=== PATIENT | female | born 1950 | race Caucasian/White ===

== ENCOUNTER 2018-04-19 12:39 | Emergency (ER) | payer MEDICARE ==
[2018-04-19 13:02] VITALS: BP 205/88
--- NOTE | 2018-04-19 13:12 | UC ---
Respiratory Complaint HPI - HPI Summary HPI Summary: 68-year-old female with history of asthma presents with 4 day history of nasal congestion, postnasal drip, mild shortness of breath, wheezing, and a nonproductive cough. States she is having to use her rescue inhaler almost every 4 hours. Denies fever, chills, ear pain, sore throat, chest pain, palpitations, abdominal pain, nausea, or vomiting. - History of Current Complaint Chief Complaint: UCRespiratory Stated Complaint: COUGH Time Seen by Provider: 04/19/18 13:06 Hx Obtained From: Patient Pain Intensity: 2 - Allergies/Home Medications Allergies/Adverse Reactions: Allergies Allergy/AdvReac Type Severity Reaction Status Date / Time clindamycin Allergy Hives Verified 04/19/18 12:57 ibuprofen Allergy Bleeding Verified 04/19/18 13:06 Home Medications: Home Medications Loratadine [Claritin 10 MG CAP] 10 mg PO DAILY 04/19/18 [History Confirmed 04/19] Verapamil SR CAP* [Calan Sr CAP*] 180 mg PO BID 04/19/18 [History Confirmed ] PMH/Surg Hx/FS Hx/Imm Hx Cardiovascular History: Hypertension Respiratory History: Asthma, Bronchitis, Pneumonia - Surgical History Surgical History: Yes Surgery Procedure, Year, and Place: hysterectomy - Family History Known Family History: Positive: Non-Contributory - Social History Occupation: Retired Lives: With Family Alcohol Use: Daily Alcohol Amount: 3-6 drinks Substance Use Type: None Smoking Status (MU): Former Smoker Type: Cigarettes Amount Used/How Often: Review of Systems All Other Systems Reviewed And Are Negative: Yes Constitutional: Negative: Fever, Chills Eyes: Negative: Drainage, Eye Redness ENT: Positive: Nasal Discharge, Sinus Congestion. Negative: Sore Throat, Ear Ache, Sinus Pain/Tenderness Respiratory: Positive: Shortness Of Breath, Cough, Other - Wheezing Cardiovascular: Negative: Palpitations, Chest Pain Gastrointestinal: Negative: Abdominal Pain, Vomiting, Diarrhea, Nausea Genitourinary: Positive: Negative Musculoskeletal: Positive: Negative Neurological: Positive: Negative Physical Exam - Summary Physical Exam Summary: GENERAL APPEARANCE: Well developed, obese, alert and cooperative, and appears to be in no acute distress. EYES: Conjunctiva clear. No drainage. Vision is grossly intact. EARS: External auditory canals and tympanic membranes clear, hearing grossly intact. NOSE: Mild nasal congestion with mucosal erythema and edema. No nasal discharge. THROAT: Mild pharyngeal erythema with cobblestoning. No tonsilar inflammation, swelling, exudate, or lesions. NECK: Neck supple, non-tender without lymphadenopathy. CARDIAC: Normal S1 and S2. No S3, S4 or murmurs. Rhythm is regular. There is no peripheral edema, cyanosis or pallor. Extremities are warm and well perfused. Capillary refill is less than 2 seconds. LUNGS: Mildly diminished bilateral breath sounds with mild expiratory wheezing. ABDOMEN: Positive bowel sounds. Soft, nondistended, nontender. No guarding or rebound. No masses or hepatosplenomegally. MUSKULOSKELETAL: ROM intact to all extremities. No joint erythema or tenderness. Normal muscular development. Normal gait. SKIN: Skin normal color, texture and turgor with no lesions or eruptions. Triage Information Reviewed: Yes Vital Signs: Initial Vital Signs Temp 98.3 F 04/19/18 12:57 Pulse 88 04/19/18 12:57 Resp 16 04/19/18 12:57 BP 205/88 04/19/18 12:57 Pulse Ox 96 04/19/18 12:57 Vital Signs Reviewed: Yes Diagnostic Evaluation - Laboratory O2 Sat by Pulse Oximetry: 96 Respiratory Course/Dx - Course Course Of Treatment: 68-year-old female with history of asthma presents with 4 day history of nasal congestion, postnasal drip, mild shortness of breath, wheezing, and a nonproductive cough. States she is having to use her rescue inhaler almost every 4 hours. Denies fever, chills, ear pain, sore throat, chest pain, palpitations, abdominal pain, nausea, or vomiting. Afebrile. Patient is noted to have systolic hypertension otherwise vital signs stable. Exam reveals older adult female in no acute distress with mild nasal congestion , mild pharyngeal erythema with cobblestoning, decreased bilateral breath sounds with mild expiratory wheezing, and a bronchospastic, nonproductive cough. Will treat patient for an acute bronchitis with asthma exacerbation starting her on a Z-Elizabeth, five-day course of prednisone 50 mg, and provided her with Tessalon Perles as needed for cough. She is to follow-up with her primary care provider in 5 days if symptoms do not improve. Anticipatory guidance and warning symptoms reviewed with the patient. Verbalizes understanding and agrees with plan of care. - Differential Dx/Diagnosis Differential Diagnosis/HQI/PQRI: Asthma, Bronchitis, Influenza, Lower Resp Infection, Sinusitis Provider Diagnosis: Acute bronchitis, Asthma exacerbation Discharge - Sign-Out/Discharge Documenting (check all that apply): Patient Departure All imaging exams completed and their final reports reviewed: No Studies - Discharge Plan Condition: Stable Disposition: HOME Prescriptions: Azithromyxin ELIZABETH (NF) [Z-Elizabeth (Zithromax) 250 mg tabs #6] 2 tab PO .TODAY, THEN 1 DAILY #6 tab Benzonatate CAP* [Tessalon 100 MG CAP*] 100 mg PO TID PRN #30 cap PRN Reason: Cough predniSONE TAB* [Deltasone TAB*] 50 mg PO DAILY #5 tab Patient Education Materials: Acute Bronchitis (ED), Bronchospasm (ED) Referrals: Tiffany Sifuentes MD [Primary Care Provider] - 5 Days Additional Instructions: Your history and exam are consistent with acute bronchitis with an exacerbation of your asthma. With your asthma history we will treat you with an antibiotic for the infection. Start azithromycin 2 tabs today then 1 tab a day for next 4 days. Continue to use your inhalers as directed. Start prednisone 50 mg daily for 5 days. May use Tessalon Perles 1 cap every 8 hours as needed for cough. Get plenty of rest. Drink plenty of fluids. Run a cool mist humidifer in your room at night. Take over the counter acetaminophen (Tylenol) or ibuprofen (Advil, Motrin) according to directions as needed for pain or fever. Follow up with your primary care provider in 5 days if symptoms do not improve. Seek immediate medical attention in the emergency room if you have fever greater than 100.5 F despite taking acetaminophen or ibuprofen, have chest pain , difficulty breathing, or have any worsening of symptoms. - Billing Disposition and Condition Condition: STABLE Disposition: Home
== END 2018-04-19 13:36 | disposition home or self-care (01) ==
LOC: UCEAST 12:39
DX: J45.901 Unspecified asthma with (acute) exacerbation (principal); J20.9 Acute bronchitis, unspecified; I10 Essential (primary) hypertension; Z87.01 Personal history of pneumonia (recurrent); Z87.891 Personal history of nicotine dependence; Z88.1 Allergy status to other antibiotic agents; Z88.8 Allergy status to other drugs, medicaments and biological substances
CPT/HCPCS: 99212; G0463

== ENCOUNTER 2019-01-12 12:16 | Emergency (ER) | payer MEDICARE ==
[2019-01-12 12:59] VITALS: BP 00/00
[2019-01-12] MEDS ORDERED: Albuterol/Ipratropium NEB.SOL* Albuterol 2.5 MG/Ipratropium 0.5 MG 3 ML INH ONE (13:58)
--- NOTE | 2019-01-12 14:02 | UC ---
Respiratory Complaint HPI - HPI Summary HPI Summary: 68-year-old female who has a history of asthma. She's been sick for about 2 weeks with cough and head congestion and now she has sinus pressure as well as wheezing. She has been using her albuterol inhaler at home without improvement. She did receive a flu immunization as well as a pneumonia immunization already this year. She has a mild smoker. - History of Current Complaint Chief Complaint: UCRespiratory Stated Complaint: URI Time Seen by Provider: 01/12/19 13:47 Hx Obtained From: Patient ?: No Onset/Duration: Gradual Onset Timing: Intermittent Episodes Severity Initially: Mild Severity Currently: Moderate Pain Intensity: 0 Character: Cough: Nonproductive Aggravating Factors: Exertion, Deep Breaths Alleviating Factors: Nothing, Other - Patient has been using her albuterol inhaler without improvement. Associated Signs And Symptoms: Positive: Wheezing, URI, Nasal Congestion, Sinus Discomfort - Allergies/Home Medications Allergies/Adverse Reactions: Allergies Allergy/AdvReac Type Severity Reaction Status Date / Time clindamycin Allergy Hives Verified 01/12/19 12:59 ibuprofen Allergy Bleeding Verified 01/12/19 12:59 PMH/Surg Hx/FS Hx/Imm Hx Previously Healthy: Yes Respiratory History: Asthma GI/ History: Ulcer - Surgical History Surgical History: Yes Surgery Procedure, Year, and Place: hysterectomy - Family History Known Family History: Positive: Non-Contributory - Social History Alcohol Use: Weekly Alcohol Amount: 3-6 drinks Substance Use Type: None Smoking Status (MU): Light Every Day Tobacco Smoker Type: Cigarettes Amount Used/How Often: 03/24/ Review of Systems All Other Systems Reviewed And Are Negative: Yes ENT: Positive: Nasal Discharge, Sinus Congestion, Sinus Pain/Tenderness Respiratory: Positive: Cough, Other - Wheezing Is Patient Immunocompromised?: No Physical Exam Triage Information Reviewed: Yes Appearance: Well-Appearing, No Pain Distress, Well-Nourished Vital Signs: Initial Vital Signs Temp 96.6 F 01/12/19 12:55 Pulse 74 01/12/19 12:55 Resp 18 01/12/19 12:55 BP 00/00 01/12/19 12:55 Pulse Ox 97 01/12/19 12:55 Vital Signs Reviewed: Yes Eyes: Positive: Conjunctiva Clear ENT: Positive: Pharyngeal erythema, Nasal congestion, Nasal drainage - Yellow purulent nasal coryza., TMs normal, Sinus tenderness - Bilateral maxillary sinus tenderness., Uvula midline, Other - Yellow purulent postnasal drainage. Neck: Positive: Supple, Nontender, No Lymphadenopathy Respiratory: Positive: No respiratory distress, No accessory muscle use, Rhonchi , Wheezing - Scattered rhonchi and wheezing throughout. Cardiovascular: Positive: RRR, No Murmur, Pulses Normal, Brisk Capillary Refill Musculoskeletal Exam: Normal Neurological Exam: Normal Psychological Exam: Normal Skin Exam: Normal Respiratory Course/Dx - Course Course Of Treatment: DuoNeb treatment: The patient felt much better following the DuoNeb treatment and felt like she was getting a much lobo breath of air as well as decreased wheezing. Her lung sounds continue to have mild rhonchi and wheezing however much improved compared to before the treatment. - Differential Dx/Diagnosis Provider Diagnosis: Sinusitis, Bronchitis Discharge ED - Sign-Out/Discharge Documenting (check all that apply): Patient Departure All imaging exams completed and their final reports reviewed: No Studies - Discharge Plan Condition: Fair Disposition: HOME Prescriptions: DOXYcycline CAP(*) [DOXYcycline 100MG CAP(*)] 100 mg PO BID 10 Days #20 cap predniSONE TAB* [Deltasone 10 MG TAB*] 10 mg PO DAILY 12 Days #30 tab Patient Education Materials: Sinusitis (ED), Acute Bronchitis (ED) Referrals: Tiffany Sifuentes MD [Primary Care Provider] - Additional Instructions: Increase fluids, no antacids, multivitamins or dairy products 2 hours before you take the doxycycline and 2 hours after you take the doxycycline however be sure and take it with food. Take the prednisone with food. Definite follow-up with your primary care provider on Tuesday or Tuesday if no improvement symptoms. Go to the emergency room if you have any worsening symptoms or difficulty breathing. - Billing Disposition and Condition Condition: FAIR Disposition: Home
== END 2019-01-12 14:57 | disposition home or self-care (01) ==
LOC: UCEAST 12:16
DX: J32.9 Chronic sinusitis, unspecified (principal); J45.909 Unspecified asthma, uncomplicated; F17.210 Nicotine dependence, cigarettes, uncomplicated; R05 Cough; Z88.1 Allergy status to other antibiotic agents; Z88.8 Allergy status to other drugs, medicaments and biological substances
CPT/HCPCS: 99212; A9270-GY; G0463

== ENCOUNTER 2019-07-25 06:26 | Inpatient (IN) ==
[2019-07-25 06:59] LABS: ABS Basophils 0.1 10^3/ul (0-0.2); ABS Eosinophils 0.5 10^3/ul (0-0.6); ABS Lymphocytes 1.3 10^3/ul (1.0-4.8); ABS Monocytes 0.7 10^3/ul (0-0.8); Eosinophil % 5.3 %; Hematocrit 52 % (35-47); Hemoglobin 17.9 g/dL (12.0-16.0); Lymphocyte % 15.6 %; Mean Corpuscular HGB Conc 35 g/dL (31-36); Mean Corpuscular Hemoglobin 32 pg (27-31); Mean Corpuscular Volume 93 fL (80-97); Mean Platelet Volume 9.3 fL (7.4-10.4); Platelet Count 228 10^3/uL (150-450); Red Blood Count 5.55 10^6 /uL (3.70-4.87); Red Cell Distribution Width 15 % (10-15); White Blood Count 8.6 10^3/uL (3.5-10.8)
[2019-07-25 07:01] LABS: INR 0.97 (0.82-1.09)
[2019-07-25 07:16] LABS: ALT 57 U/L (7-52); Albumin 3.9 g/dL (3.2-5.2); Albumin/Globulin Ratio 1.4 (1-3); Alkaline Phosphatase 89 U/L (34-104); BUN/Creatinine Ratio 14.8 (8-20); Blood Urea Nitrogen 13 mg/dL (6-24); CO2 Carbon Dioxide 26 mmol/L (22-32); Calcium 9.7 mg/dL (8.6-10.3); Chloride 105 mmol/L (101-111); EGFR African American 77.3 (>60); EGFR Non-African American 63.9 (>60); Globulin 2.7 g/dL (2-4); Glucose 141 mg/dL (70-100); Magnesium 2.1 mg/dL (1.9-2.7); Sodium 140 mmol/L (135-145); Total Protein 6.6 g/dL (6.4-8.9)
[2019-07-25] MEDS ORDERED: Heparin - STEMI 5,000 UNITS/ML 1 ml VIAL IV ONE (07:31)
[2019-07-25] MEDS: Heparin DRIP 25,000 UNITS(*) 25,000 UNITS/500 ML BAG IV SCH ×2 (07:52→07:56)
[2019-07-25] MEDS: Heparin 5000 UNITS/ML VIAL(*) 1 ml vial IV SCH ×2 (07:52→07:57)
[2019-07-25 08:05] LABS: Activated Partial Thrombo Time 33.8 seconds (26.0-38.0)
[2019-07-25 08:17] LABS: AST 40 U/L (13-39); Anion Gap 9 mmol/L (2-11); Potassium 4.1 mmol/L (3.5-5.0)
[2019-07-25] MEDS ORDERED: diPHENhydraMINE 25 mg TAB PO PRN (08:44)
[2019-07-25] MEDS ORDERED: Diazepam 5 mg TAB (*) PO PRN (08:44)
[2019-07-25] MEDS ORDERED: NS 0.9% 1000 ml BAG 1,000 ML IV SCH ×2 (08:45→11:45)
[2019-07-25 08:46] LABS: Creatine Kinase 98 U/L (10-223)
[2019-07-25 08:53] LABS: CKMB ng/mL 6.2 ng/mL (0.6-6.3)
[2019-07-25] MEDS ORDERED: Midazolam 5 mg/5 ml VIAL 1 mg/ml 5 ml VIAL (5 mg) ONE (08:58)
[2019-07-25] MEDS ORDERED: fentaNYL 100 mcg/2 ml 50 MCG/ML VIAL ONE (08:58)
[2019-07-25] MEDS ORDERED: Heparin 1,000 UNIT/ML CATH LAB 1,000 10 ml (10,000 UNITS) IV ONE (08:58)
[2019-07-25] MEDS ORDERED: VERAPAMIL 2.5 MG/ML 2 ML VIAL ** 5 mg/2 ml ONE (08:58)
[2019-07-25] MEDS ORDERED: Lidocaine 1% VIAL 10 MG/ML VIAL ONE (08:59)
[2019-07-25] MEDS ORDERED: nitroGLYCERIN DRIP 25,000 MCG/250 ML BTL ONE (08:59)
[2019-07-25] MEDS ORDERED: Heparin 2 UNITS/ML 1000 mls 2,000 ML IV ONE (08:59)
[2019-07-25] MEDS ORDERED: nitroGLYCERIN DRIP 25,000 MCG/250 ML BTL IV SCH (09:00)
[2019-07-25] MEDS ORDERED: Perflutren Lipid Microsphere 3 ML VIAL ONE (09:31)
[2019-07-25] MEDS ORDERED: Iohexol 350 (CONTRAST) 200 ML MDV IV ONE ×2 (10:01→11:03)
[2019-07-25] MEDS ORDERED: Bivalirudin(*) 250 MG VIAL ONE ×2 (10:44→11:10)
[2019-07-25] MEDS ORDERED: Adenosine 3 MG/ML 2 ml VIAL (6 mg) ONE (11:01)
[2019-07-25] MEDS ORDERED: NitroPRUSSide 25 mg/ml 2 ml VIAL (50 mg) IV ONE (11:04)
[2019-07-25] MEDS ORDERED: Ondansetron 4 mg VIAL 2 MG/ML 2 ml VIAL IV PRN (11:37)
[2019-07-25 12:35] LABS: Troponin I 2.05 ng/mL (<0.03)
[2019-07-25] MEDS ORDERED: Levalbuterol 1.25MG/0.5ML NEB.SOL INH PRN (14:48)
[2019-07-25 18:37] LABS: Troponin I 5.81 ng/mL (<0.03)
[2019-07-25] MEDS: Mometasone/Formoter 100/5 MDI INH SCH (19:02)
[2019-07-26 00:18] LABS: Troponin I 5.69 ng/mL (<0.03)
[2019-07-26 03:57] LABS: ABS Eosinophils 0.2 10^3/ul (0-0.6); ABS Lymphocytes 1.1 10^3/ul (1.0-4.8); ABS Monocytes 0.9 10^3/ul (0-0.8); Eosinophil % 2.1 %; Hematocrit 45 % (35-47); Hemoglobin 15.5 g/dL (12.0-16.0); Lymphocyte % 9.2 %; Mean Corpuscular HGB Conc 34 g/dL (31-36); Mean Corpuscular Hemoglobin 32 pg (27-31); Mean Corpuscular Volume 94 fL (80-97); Mean Platelet Volume 9.7 fL (7.4-10.4); Nucleated Red Blood Cells % 0.2; Platelet Count 195 10^3/uL (150-450); Red Blood Count 4.83 10^6 /uL (3.70-4.87); Red Cell Distribution Width 15 % (10-15); White Blood Count 11.4 10^3/uL (3.5-10.8)
[2019-07-26 04:12] LABS: ALT 47 U/L (7-52); AST 46 U/L (13-39); Albumin 3.4 g/dL (3.2-5.2); Albumin/Globulin Ratio 1.6 (1-3); Alkaline Phosphatase 71 U/L (34-104); Anion Gap 8 mmol/L (2-11); BUN/Creatinine Ratio 12.3 (8-20); Blood Urea Nitrogen 8 mg/dL (6-24); CO2 Carbon Dioxide 22 mmol/L (22-32); Calcium 8.4 mg/dL (8.6-10.3); Chloride 108 mmol/L (101-111); Cholesterol 197 mg/dL; EGFR African American 109.7 (>60); EGFR Non-African American 90.6 (>60); Globulin 2.1 g/dL (2-4); Glucose 139 mg/dL (70-100); HDL Cholesterol 46.3 mg/dL; LDL Cholesterol 112 mg/dL; Potassium 3.5 mmol/L (3.5-5.0); Sodium 138 mmol/L (135-145); Total Protein 5.5 g/dL (6.4-8.9); Triglycerides 192 mg/dL
[2019-07-26] MEDS: Mometasone/Formoter 100/5 MDI INH SCH ×3 (08:06→21:57)
[2019-07-26 08:25] LABS: Magnesium 1.8 mg/dL (1.9-2.7)
[2019-07-26] MEDS ORDERED: Potassium Chlor 20 meq TAB.ER PO ONE ×2 (09:16→10:30)
[2019-07-26] MEDS ORDERED: Magnesium Sulfate 2 gm BAG 2 GM/50 ML BAG IVPB ONE (09:16)
[2019-07-26] MEDS ORDERED: ceFAZolin 2 GM PREMIX in ORs 2 GM/50 ML BAG IVPB ONE (09:52)
[2019-07-26] MEDS ORDERED: Aminophylline 25 MG/ML VIAL IV PRN (09:55)
[2019-07-26] MEDS ORDERED: NS 0.9% 1000 ml BAG 1,000 ML IV SCH (10:00)
[2019-07-26] MEDS ORDERED: niCARdipine 0.1MG/ML IVPREMIX 20 MG/200 ML BAG IV SCH (11:00)
[2019-07-26 11:45] LABS: Troponin I 3.84 ng/mL (<0.03)
[2019-07-26] MEDS ORDERED: Lidocaine 1% VIAL 10 MG/ML VIAL ONE ×2 (11:55→13:26)
[2019-07-26] MEDS ORDERED: Iohexol 300 (CONTRAST) 10 ML SDV ONE (11:55)
[2019-07-26] MEDS ORDERED: fentaNYL 100 mcg/2 ml 50 MCG/ML VIAL ONE (12:28)
[2019-07-26] MEDS ORDERED: Midazolam 5 mg/5 ml VIAL 1 mg/ml 5 ml VIAL (5 mg) ONE (12:28)
[2019-07-26] MEDS ORDERED: Aminophylline 25 MG/ML VIAL ONE (12:58)
[2019-07-26] MEDS ORDERED: fentaNYL 100 mcg/2 ml 50 MCG/ML VIAL IV PRN (15:07)
[2019-07-26] MEDS ORDERED: Naloxone 0.4 mg VIAL 0.4 mg/ml 1 ml VIAL IV PRN (15:07)
[2019-07-26] MEDS: NICARDIPINE IV SCH ×3 (16:40→21:45)
[2019-07-26] MEDS: [UNRECOGNIZED DRUG - OTHER] IV SCH ×3 (16:40→21:45)
[2019-07-26] MEDS ORDERED: Furosemide 40 mg/4 ml IV VIAL IV SLOW PU ONE (17:51)
[2019-07-26] MEDS: NS 0.9% IVPB SCH (22:02)
[2019-07-26] MEDS: CEFAZOLIN IVPB SCH (22:02)
[2019-07-27] MEDS: [UNRECOGNIZED DRUG - OTHER] IV SCH (01:36)
[2019-07-27] MEDS: NICARDIPINE IV SCH (01:36)
[2019-07-27] MEDS: NS 0.9% IVPB SCH ×3 (05:05→20:44)
[2019-07-27] MEDS: CEFAZOLIN IVPB SCH ×3 (05:05→20:44)
[2019-07-27] MEDS ORDERED: Iohexol 350 (CONTRAST) 500 ML MDV IV ONE (10:00)
[2019-07-27] MEDS ORDERED: Iodixanol (CONTRAST) 320 MG/ML 100 ML SDV IV ONE (10:03)
[2019-07-27] MEDS ORDERED: oxyCODONE/Acetamin 5/325 mg TAB PO ONE ×2 (13:24→20:56)
[2019-07-27] MEDS: Mometasone/Formoter 100/5 MDI INH SCH ×2 (13:46→19:03)
[2019-07-27] MEDS ORDERED: Polyethylene Glycol 3350 17 GM PACKET PO PRN (17:16)
[2019-07-27] MEDS ORDERED: Senna TAB 8.6 mg TAB PO PRN (17:16)
[2019-07-28 05:36] LABS: Hematocrit 47 % (35-47); Hemoglobin 16.2 g/dL (12.0-16.0); Mean Corpuscular HGB Conc 35 g/dL (31-36); Mean Corpuscular Hemoglobin 32 pg (27-31); Mean Corpuscular Volume 93 fL (80-97); Mean Platelet Volume 9.4 fL (7.4-10.4); Platelet Count 203 10^3/uL (150-450); Red Blood Count 5.04 10^6 /uL (3.70-4.87); Red Cell Distribution Width 15 % (10-15); White Blood Count 9.2 10^3/uL (3.5-10.8)
[2019-07-28 05:48] LABS: Calcium 8.8 mg/dL (8.6-10.3); EGFR African American 80.5 (>60); EGFR Non-African American 66.5 (>60); Potassium 3.7 mmol/L (3.5-5.0)
[2019-07-28] MEDS: NS 0.9% IVPB SCH ×3 (06:26→20:20)
[2019-07-28] MEDS: CEFAZOLIN IVPB SCH ×3 (06:26→20:20)
[2019-07-28] MEDS: Mometasone/Formoter 100/5 MDI INH SCH ×2 (07:46→19:47)
[2019-07-28] MEDS: oxyCODONE/Acetamin 5/325 mg TAB PO PRN ×2 (13:57→20:18)
[2019-07-29] MEDS: CEFAZOLIN IVPB SCH ×2 (04:18→12:41)
[2019-07-29] MEDS: NS 0.9% IVPB SCH ×2 (04:18→12:41)
[2019-07-29] MEDS: Mometasone/Formoter 100/5 MDI INH SCH ×2 (07:45→19:59)
[2019-07-29] MEDS: oxyCODONE/Acetamin 5/325 mg TAB PO PRN (23:38)
[2019-07-30] MEDS: Mometasone/Formoter 100/5 MDI INH SCH (07:14)
[2019-07-30 07:41] LABS: Hematocrit 47 % (35-47); Hemoglobin 16.5 g/dL (12.0-16.0)
[2019-07-30 07:55] LABS: Albumin 3.8 g/dL (3.2-5.2); Albumin/Globulin Ratio 1.6 (1-3); BUN/Creatinine Ratio 17.1 (8-20); Calcium 9.1 mg/dL (8.6-10.3); EGFR African American 100.7 (>60); EGFR Non-African American 83.2 (>60); Globulin 2.4 g/dL (2-4); Potassium 4.3 mmol/L (3.5-5.0); Total Bilirubin 1.1 mg/dL (0.2-1.0); Total Protein 6.2 g/dL (6.4-8.9)
[2019-07-30 18:12] VITALS: BP 128/48
== END 2019-07-30 19:00 | disposition home or self-care (01) | DRG 243 ==
LOC: ED 06:26 → ICU 10:22 → MEDTELE 07-27 23:54
PROVIDERS: ADMIT Internal Medicine; ATTEND Family Medicine